=== PATIENT | female | born 1995 | race Caucasian/White ===

== ENCOUNTER 2021-04-23 07:53 | Outpatient (CLI) | payer BC, OTHER ==
[2021-04-23 20:52] LABS: SARS-CoV-2 PCR by NAA DETECTED (NotDetected)
== END 2021-04-23 07:54 | disposition home or self-care (01) ==
LOC: CSHLAB 07:53
PROVIDERS: ATTEND Obstetrics & Gynecology
DX: U07.1 COVID-19 (principal)
CPT/HCPCS: U0003; U0005

== ENCOUNTER 2021-04-25 19:45 | Inpatient (IN) | payer BC, OTHER ==
[2021-04-28] MEDS ORDERED: Bupivacaine 0.25% HCL 30 ML VIAL ONE (06:00)
[2021-04-28 20:39] VITALS: BMI 28.2
[2021-04-28] MEDS ORDERED: hydrALAZINE 20 MG/ML VIAL SLOW IVP PRN (20:43)
[2021-04-28] MEDS ORDERED: Lidocaine 1% (PF) 30 ML VIAL SC PRN (20:43)
[2021-04-28] MEDS ORDERED: Zolpidem Tartrate 5 MG TAB PO PRN (20:43)
[2021-04-28] MEDS ORDERED: Docusate 100 MG CAP PO PRN (20:43)
[2021-04-28] MEDS ORDERED: Acetaminophen 500 MG TAB PO PRN (20:43)
[2021-04-28] MEDS ORDERED: Promethazine HCl 25 MG/ML VIAL IM PRN (20:43)
[2021-04-28] MEDS ORDERED: NS w/ Oxytocin 30 units 500 ML IV SCH (20:43)
[2021-04-28] MEDS ORDERED: Ibuprofen 800 MG TAB PO PRN (20:43)
[2021-04-28] MEDS ORDERED: Ondansetron PF 4 MG/2 ML Vial IVP PRN (20:43)
[2021-04-28] MEDS ORDERED: Diphenoxylate HCl/Atropine Tablet PO PRN ×2 (20:43)
[2021-04-28] MEDS ORDERED: Butorphanol Tartrate 1 MG/ML VIAL SLOW IVP PRN (20:43)
[2021-04-28] MEDS ORDERED: Misoprostol 200 MCG TAB PR PRN (20:43)
[2021-04-28] MEDS ORDERED: HYDROcodone/Acetaminophen 5/325 mg Tablet PO PRN ×2 (20:43)
[2021-04-28] MEDS: Lactated Ringer's 1,000 ML IV SCH (21:27)
[2021-04-28] MEDS: Misoprostol 100 MCG TAB VAG SCH (21:27)
[2021-04-28 21:44] LABS: Hemoglobin 11.2 g/dL (12.0-15.5); Mean Corpuscular HGB CONC 31.1 g/dL (32.0-36.0); Mean Corpuscular Hemoglobin 24.8 pg (27.0-33.0); Mean Corpuscular Volume 79.6 fl (81.6-98.3); Platelet Count 204 10x3/uL (150-450); RBC Distribution Width 22.6 % (11.5-14.5); Red Blood Cell (RBC) Count 4.52 10x6/uL (3.90-5.03); White Blood Cell (WBC) Count 8.2 10x3/uL (3.5-10.5)
[2021-04-28 22:13] LABS: HIV (1/2) Antibody/Antigen Non-Reactive (NonReactive); HIV 1/2 INDEX 0.06 S/CO (<1.00); Hep B Surf Ag Non-Reactive S/CO (NonReactive); Syphilis Antibody Nonreactive (Nonreactive); Syphilis Antibody Index 0.03 S/CO (<1.00 Non-Reactive)
[2021-04-28 22:27] LABS: HBSAg Index 0.19 S/CO (0-0.99)
[2021-04-29] MEDS: Misoprostol 100 MCG TAB VAG SCH ×5 (00:44→13:50)
[2021-04-29] MEDS ORDERED: Fentanyl 2 mcg/Bup 0.1% Cadd 100 ML ONE (06:41)
[2021-04-29] MEDS: Lactated Ringer's 1,000 ML IV SCH (06:45)
[2021-04-29] MEDS ORDERED: ePHEDrine Sulfate 50 MG/10 ML VIAL SLOW IVP PRN (07:28)
[2021-04-29] MEDS ORDERED: Naloxone HCl 0.4 mg/ml Vial IVP PRN ×2 (07:28)
[2021-04-29] MEDS ORDERED: Promethazine HCl 25 MG/ML VIAL IM PRN (07:28)
[2021-04-29] MEDS ORDERED: Lactated Ringer's 500 ML IV PRN (07:28)
[2021-04-29] MEDS ORDERED: Ondansetron PF 4 MG/2 ML Vial IVP PRN ×2 (07:28→09:56)
[2021-04-29] MEDS ORDERED: diphenhydrAMINE 50 MG/ML VIAL IVP PRN (07:28)
[2021-04-29] MEDS ORDERED: Hydrocerin (Eucerin) Cream 120 gm Jar TOP PRN (07:28)
[2021-04-29] MEDS ORDERED: Acetaminophen 325 MG TAB PO PRN ×2 (07:28→09:58)
[2021-04-29] MEDS ORDERED: Fentanyl 2 mcg/Bupivacaine 0.1% Cassette 100 ML EPIDURAL SCH (07:30)
[2021-04-29] MEDS ORDERED: Communication Order-Pharmacy FS SCH (07:30)
[2021-04-29] MEDS: NS w/ Oxytocin 30 units 500 ML IV SCH ×2 (09:44→10:32)
[2021-04-29] MEDS ORDERED: Methylergonovine 0.2 MG/ML VIAL ONE (09:51)
[2021-04-29] MEDS ORDERED: Carboprost 250 MCG/ML AMP ONE (09:51)
[2021-04-29] MEDS ORDERED: Misoprostol 200 MCG TAB VAG PRN (09:56)
[2021-04-29] MEDS ORDERED: Bisacodyl 10 MG SUPP PR PRN (09:56)
[2021-04-29] MEDS ORDERED: Zolpidem Tartrate 5 MG TAB PO PRN (09:56)
[2021-04-29] MEDS ORDERED: Benzocaine-Menthol 82.5 ML CAN TOP PRN (09:56)
[2021-04-29] MEDS ORDERED: Milk Of Magnesia 30 ML UDCUP PO PRN (09:56)
[2021-04-29] MEDS ORDERED: Boostrix 0.5 ML (Tdap) VIAL IM ONE (09:56)
[2021-04-29] MEDS ORDERED: diphenhydrAMINE 25 MG CAP PO PRN (09:56)
[2021-04-29] MEDS ORDERED: HYDROcodone/Acetaminophen 5/325 mg Tablet PO PRN ×2 (09:56)
[2021-04-29] MEDS ORDERED: Lanolin Ointment 7 GM TUBE TOP PRN (09:56)
[2021-04-29] MEDS ORDERED: hydrALAZINE 20 MG/ML VIAL SLOW IVP PRN (09:56)
[2021-04-29] MEDS ORDERED: Preparation H Ointment 28 GM TUBE PR PRN (09:56)
[2021-04-29] MEDS ORDERED: Witch Hazel-Glycerin 1 EACH JAR TOP PRN (09:58)
[2021-04-29] MEDS ORDERED: NS w/ Oxytocin 30 units 500 ML IV SCH (10:00)
[2021-04-29] MEDS: Ibuprofen 800 MG TAB PO SCH ×2 (14:32→21:38)
[2021-04-29] MEDS: Ferrous Sulfate 325 MG TAB PO SCH (15:26)
[2021-04-29] MEDS: Docusate 100 MG CAP PO SCH (21:37)
[2021-04-30 04:54] LABS: Hemoglobin 10.7 g/dL (12.0-15.5); Mean Corpuscular HGB CONC 30.8 g/dL (32.0-36.0); Mean Corpuscular Hemoglobin 24.8 pg (27.0-33.0); Mean Corpuscular Volume 80.3 fl (81.6-98.3); Mean Platelet Volume 11.5 fl (7.4-10.4); Platelet Count 156 10x3/uL (150-450); RBC Distribution Width 22.2 % (11.5-14.5); Red Blood Cell (RBC) Count 4.32 10x6/uL (3.90-5.03); White Blood Cell (WBC) Count 9.8 10x3/uL (3.5-10.5)
[2021-04-30] MEDS: Ibuprofen 800 MG TAB PO SCH ×2 (05:14→14:32)
[2021-04-30] MEDS: Docusate 100 MG CAP PO SCH (08:39)
[2021-04-30] MEDS ORDERED: Prenatal Vitamin 1 TAB PO SCH (09:00)
[2021-04-30 11:18] VITALS: BP 115/77; TEMP 97.8
[2021-04-30] MEDS: Ferrous Sulfate 325 MG TAB PO SCH (13:37)
== END 2021-04-30 17:00 | disposition home or self-care (01) | DRG 805 ==
LOC: CSHLD 04-28 19:41 → CSHANTE 04-29 12:10
PROVIDERS: ADMIT Obstetrics & Gynecology; ATTEND Obstetrics & Gynecology
PROC: 10E0XZZ Delivery of Products of Conception, External Approach (ICD-10-PCS; principal; 2021-04-28)
DX: O24.429 Gestational diabetes mellitus in childbirth, unspecified control (principal); U07.1 COVID-19; Z37.0 Single live birth; O98.52 Other viral diseases complicating childbirth; Z3A.39 39 weeks gestation of pregnancy
CPT/HCPCS: 36415; 36416; 51702; 85027; 86780; 86850; 86900; 86901; 87340; 87389; J2405; J2590; J7120; S0020